=== PATIENT | female | born 1965 | race Native Hawaiian/Other Pacific Islander ===

== ENCOUNTER 2018-10-10 09:53 | Outpatient (CLI) | payer OTHER | END 2018-10-10 19:13 | disposition home or self-care (01) | LOC: MAMMO 09:53 | DX: Z12.31 Encounter for screening mammogram for malignant neoplasm of breast (principal) ==

== ENCOUNTER 2020-09-13 09:02 | Outpatient (CLI) | payer OTHER | END 2020-09-13 19:42 | disposition home or self-care (01) | LOC: RESP 09:02 | PROVIDERS: ATTEND Nurse Practitioner Family | DX: Z01.818 Encounter for other preprocedural examination (principal) | CPT/HCPCS: 93005 ==

== ENCOUNTER 2021-10-03 08:32 | Outpatient (CLI) | payer OTHER | END 2021-10-03 18:59 | disposition home or self-care (01) | LOC: MAMMO 08:32 | PROVIDERS: ATTEND Registered Nurse | DX: Z12.31 Encounter for screening mammogram for malignant neoplasm of breast (principal) ==

== ENCOUNTER 2023-02-02 08:58 | Outpatient (CLI) | payer OTHER | END 2023-02-02 19:08 | disposition home or self-care (01) | LOC: RAD 08:58 | PROVIDERS: ATTEND Nurse Practitioner Acute Care | DX: M54.59 Other low back pain (principal) ==